=== PATIENT | male | born 1945 | race Caucasian/White ===

== ENCOUNTER → 2018-02-03 | Day surgery (SDC) | payer MEDICARE, OTHER ==
[2015-01-13 11:11] VITALS: BP 139/71
[~2018-02-03] MED LIST: AMIODARONE HCL200 MG; CHILDREN'S ASPI81 M1; IMDUR30 MG; LANTUS100 U/ML; LOPRESSOR 550 MG/TAB; METFORMIN; MULTIPLE VITAMI1 CAP PO; NIACOR500 MG PO; NITROSTAT0.4 MG SL; PRINIVIL2.5 MG; TIMOPTIC OCUDOS0.25%; XALATAN 2.5 ML2.5 ML; XARELTO10 MG PO; ZOCOR20 MG PO
== END ==
LOC: MSO 09:44
DX: Z12.11 Encounter for screening for malignant neoplasm of colon (principal); D12.2 Benign neoplasm of ascending colon; K57.30 Diverticulosis of large intestine without perforation or abscess without bleeding; I10 Essential (primary) hypertension; I25.2 Old myocardial infarction; F17.290 Nicotine dependence, other tobacco product, uncomplicated; G47.33 Obstructive sleep apnea (adult) (pediatric); Z79.899 Other long term (current) drug therapy; Z79.82 Long term (current) use of aspirin; E10.9 Type 1 diabetes mellitus without complications; Z79.4 Long term (current) use of insulin
CPT/HCPCS: 00811; J2704; J3010; J7030

== ENCOUNTER → 2020-06-26 | Outpatient (CLI) | payer MEDICARE, OTHER ==
[2015-01-13 11:11] VITALS: BP 139/71
[2020-06-26 13:00] LABS: HEMATOCRIT 41.3 % (42.0-52.0); MEAN CELL VOLUME 83 fl (78-100); MEAN CORPUSCULAR HEMOGLOBIN 28 pg (27-31); MEAN CORPUSCULAR HGB CONC 34 g/dL (33-37); MEAN PLATELET VOLUME 9.5 fl (7.4-10.4); PLATELET COUNT 191 K/mm3 (130-400); RED BLOOD COUNT 4.95 M/mm3 (4.20-5.60); RED CELL DISTRIBUTION WIDTH 14.9 % (11.5-14.5)
[2020-06-26 13:10] LABS: POTASSIUM 4.8 mmol/L (3.5-5.1)
[2020-06-26 13:13] LABS: LYMPHOCYTE 10 % (20-51); MONOCYTE 15 % (3-10); NEUTROPHILS 74 % (42-75)
[2020-06-26 13:54] LABS: ERYTHROCYTE SEDIMENTATION RATE 18 mm/hr (0-20)
== END ==
LOC: LAB 12:46
PROVIDERS: Student in an Organized Health Care Education/Training Program
DX: H60.502 Unspecified acute noninfective otitis externa, left ear (principal)

== ENCOUNTER → 2020-07-07 | Outpatient (CLI) | payer MEDICARE, OTHER ==
[2015-01-13 11:11] VITALS: BP 139/71
[2020-07-07 10:47] LABS: ALBUMIN 4.1 g/dL (3.4-4.8); POTASSIUM 4.9 mmol/L (3.5-5.1)
[2020-07-07 10:48] LABS: CALCIUM 9.6 mg/dL (8.3-10.5)
[2020-07-07 10:51] LABS: TOTAL BILIRUBIN 1.2 mg/dL (0.2-1.2)
[2020-07-07 11:03] LABS: EOS # 0.1 (0.04-0.40); EOS % 1.4 % (0.0-4.0); HEMATOCRIT 37.9 % (42.0-52.0); HEMOGLOBIN 12.2 g/dL (13.5-18.0); LYMPH# 1.3 (1.50-4.00); MEAN CELL VOLUME 86 fl (78-100); MEAN CORPUSCULAR HEMOGLOBIN 28 pg (27-31); MEAN CORPUSCULAR HGB CONC 32 g/dL (33-37); MEAN PLATELET VOLUME 10.2 fl (7.4-10.4); MONO # 1.1 (0.20-0.80); NEU # 7.1 (1.40-6.50); PLATELET COUNT 171 K/mm3 (130-400); RED BLOOD COUNT 4.41 M/mm3 (4.20-5.60); RED CELL DISTRIBUTION WIDTH 14.9 % (11.5-14.5); WHITE BLOOD COUNT 9.7 K/mm3 (4.8-10.8)
== END ==
LOC: LAB 10:15
PROVIDERS: Internal Medicine
DX: E11.9 Type 2 diabetes mellitus without complications (principal)

== ENCOUNTER → 2020-08-04 | Outpatient (CLI) | payer MEDICARE, OTHER ==
[2015-01-13 11:11] VITALS: BP 139/71
== END ==
LOC: LAB 10:17
DX: H92.02 Otalgia, left ear (principal)

== ENCOUNTER 2020-10-13 10:14 | Inpatient (IN) | payer MEDICARE, OTHER ==
[~2020-10-13 10:14] MED LIST changes: +GLUCOPHAGE1000 MG PO; -METFORMIN
[2020-10-13 20:23] VITALS: BP 150/75
[2020-10-13] MEDS ORDERED: ROXICODONE 55 MG/TAB PO (21:47)
[2020-10-13] MEDS ORDERED: ULTRAM50 M1 PO (21:49)
[2020-10-13] MEDS ORDERED: VITAMIN D310 MC1 PO (21:52)
[2020-10-13] MEDS ORDERED: NOVAPLUS MEROPEN1 GM IV ×2 (21:57→21:59)
[2020-10-13] MEDS ORDERED: PRESERVISION A1 EACH PO (22:01)
[2020-10-13] MEDS ORDERED: LASIX40 M1 PO (22:04)
[2020-10-13] MEDS ORDERED: COLACE100 M1 PO (22:05)
[2020-10-13] MEDS ORDERED: CIPRODEX 0.3%-7.5 ML OT (22:06)
[2020-10-13] MEDS ORDERED: MEGESTROL AC40 MG/ML PO (22:08)
[2020-10-13] MEDS ORDERED: NESINA25 MG PO (22:09)
[2020-10-13] MEDS ORDERED: ZOFRAN ODT4 MG PO (22:09)
[2020-10-14 05:53] VITALS: BP 153/79
[2020-10-14 17:04] VITALS: BP 137/79
[2020-10-15 05:57] VITALS: BP 111/68
[2020-10-15 14:18] LABS: POTASSIUM 4.7 mmol/L (3.5-5.1)
[2020-10-15 14:19] LABS: CALCIUM 9.6 mg/dL (8.3-10.5)
[2020-10-15 14:26] LABS: MAGNESIUM 1.52 mg/dL (1.60-2.60)
[2020-10-15 17:42] VITALS: BP 119/77
[2020-10-16 05:29] VITALS: BP 147/76
[2020-10-16 08:34] LABS: POTASSIUM 4.5 mmol/L (3.5-5.1)
[2020-10-16 17:16] VITALS: BP 117/66
[2020-10-17 06:07] VITALS: BP 162/84
[2020-10-17 06:21] LABS: POTASSIUM 4.5 mmol/L (3.5-5.1)
[2020-10-17 06:22] LABS: CALCIUM 8.8 mg/dL (8.3-10.5)
[2020-10-17 17:16] VITALS: BP 116/59
[2020-10-18 06:05] LABS: ALBUMIN 3.2 g/dL (3.4-4.8); POTASSIUM 4.5 mmol/L (3.5-5.1)
[2020-10-18 06:06] LABS: CALCIUM 8.7 mg/dL (8.3-10.5)
[2020-10-18 06:07] LABS: TOTAL PROTEIN 6.8 g/dL (6.2-8.1)
[2020-10-18 06:09] LABS: TOTAL BILIRUBIN 1.8 mg/dL (0.2-1.2)
[2020-10-18 06:12] VITALS: BP 122/62
[2020-10-18 06:14] LABS: MAGNESIUM 1.56 mg/dL (1.60-2.60)
[2020-10-18 07:55] LABS: HEMATOCRIT 27.2 % (42.0-52.0); HEMOGLOBIN 9.4 g/dL (13.5-18.0); MEAN CELL VOLUME 82 fl (78-100); MEAN CORPUSCULAR HEMOGLOBIN 28 pg (27-31); MEAN CORPUSCULAR HGB CONC 35 g/dL (33-37); RED BLOOD COUNT 3.33 M/mm3 (4.20-5.60); WHITE BLOOD COUNT 13.6 K/mm3 (4.8-10.8)
[2020-10-18 07:56] LABS: MEAN PLATELET VOLUME 9.4 fl (7.4-10.4); PLATELET COUNT 283 K/mm3 (130-400); RED CELL DISTRIBUTION WIDTH 16.6 % (11.5-14.5)
[2020-10-18 08:03] LABS: LYMPHOCYTE 13 % (20-51); MONOCYTE 8 % (3-10); NEUTROPHILS 78 % (42-75); OVALOCYTES 1+
[2020-10-18 15:27] LABS: POTASSIUM 4.4 mmol/L (3.5-5.1)
[2020-10-18 15:29] LABS: CALCIUM 8.6 mg/dL (8.3-10.5)
[2020-10-18 16:45] LABS: PH-URINE 5.5 (5.0 - 8.0); URINE APPEARANCE CLEAR; URINE BILIRUBIN 1+ (NEGATIVE); URINE COLOR YELLOW; URINE GLUCOSE NEGATIVE (NEGATIVE); URINE KETONE NEGATIVE (NEGATIVE); URINE PROTEIN(semi-quant) TRACE mg/dL (NEGATIVE); URINE UROBILINOGEN 1 mg/dL (NORMAL)
[2020-10-18 16:46] LABS: URINE BLOOD TRACE (NEGATIVE); URINE LEUKOCYTE ESTERASE NEGATIVE (NEGATIVE); URINE NITRATE NEGATIVE (NEGATIVE); URINE WBC 0-1 /hpf (0-3)
[2020-10-18 17:18] VITALS: BP 146/74
[2020-10-19 00:48] LABS: POTASSIUM 4.5 mmol/L (3.5-5.1)
[2020-10-19 00:49] LABS: CALCIUM 8.5 mg/dL (8.3-10.5)
[2020-10-19 03:11] VITALS: BP 140/80
== END 2020-10-19 04:00 | disposition short-term general hospital (02) | DRG 948 ==
LOC: MED/SURG 10:14
PROVIDERS: Internal Medicine; Nurse Practitioner; Physician Assistant; ADMIT Family Medicine
DX: R53.81 Other malaise (principal); E87.1 Hypo-osmolality and hyponatremia; I48.91 Unspecified atrial fibrillation; C30.1 Malignant neoplasm of middle ear; H70.92 Unspecified mastoiditis, left ear; I11.0 Hypertensive heart disease with heart failure; I50.9 Heart failure, unspecified; E11.9 Type 2 diabetes mellitus without complications; Z66 Do not resuscitate; H66.90 Otitis media, unspecified, unspecified ear; E66.9 Obesity, unspecified; F32.9 Major depressive disorder, single episode, unspecified; E78.5 Hyperlipidemia, unspecified; Z79.4 Long term (current) use of insulin; Z79.891 Long term (current) use of opiate analgesic; Z95.1 Presence of aortocoronary bypass graft; Z95.5 Presence of coronary angioplasty implant and graft
CPT/HCPCS: J1815; J2185; J7030